=== PATIENT | female | born 1990 | race Caucasian/White ===

== ENCOUNTER 2017-02-04 12:28 | Emergency (ER) | payer SELFPAY ==
[2017-02-04 14:54] LABS: ALT (SGPT) 13 U/L (8-55); AST (SGOT) 14 U/L (5-34); Alkaline Phosphatase 89 U/L (40-150); Anion Gap 12 mmol/L (10-20); BUN (Urea Nitrogen) 11 mg/dL (7.0-18.7); Bilirubin, Total 0.2 mg/dL (0.2-1.2); Calc. Creatinine Clearance 0 mL/min (70-130); Calcium 9.3 mg/dL (7.8-10.44); Carbon Dioxide 25 mmol/L (22-29); Chloride 106 mmol/L (98-107); Estimated GFR-MDRD 83; Globulin 3.7 g/dL (2.4-3.5); Lipase 25 U/L (8-78); Protein, Total 7.6 g/dL (6.0-8.3)
[2017-02-04] MEDS ORDERED: Ondansetron ODT 4 MG TAB ONE (15:01)
== END 2017-02-04 16:14 | disposition home or self-care (01) ==
LOC: ERS 12:28
DX: R11.2 Nausea with vomiting, unspecified (principal); F17.210 Nicotine dependence, cigarettes, uncomplicated
CPT/HCPCS: 36415; 80053; 83690; 84702; 99284; Q0162

== ENCOUNTER 2017-04-25 09:32 | Emergency (ER) | payer MEDICAID, SELFPAY | END 2017-04-25 11:52 | disposition home or self-care (01) | LOC: ERS 09:32 | DX: J11.1 Influenza due to unidentified influenza virus with other respiratory manifestations (principal); F17.210 Nicotine dependence, cigarettes, uncomplicated | CPT/HCPCS: 99283 ==

== ENCOUNTER 2018-04-09 02:17 | Emergency (ER) | payer OTHER ==
[2018-04-09] MEDS ORDERED: Lidocaine 1% (PF) 30 ML VIAL ONE (03:59)
--- NOTE | 2018-04-09 08:23 | CT ---
PRELIMINARY REPORT/[facility]/EMERGENTY AFTER-HOURS PROCEDURE CT Head Without Intravenous Contrast EXAM DATE/TIME: 04/09/2018 4:24 AM CLINICAL HISTORY: 27 years old, female; Pain; Headache; Patient HX: 1.5 months [place], localized to church, no relief with advil, excedrin, recent dx strep. TECHNIQUE: Axial computed tomography images of the head/brain without intravenous contrast. COMPARISON: No relevant prior studies available. FINDINGS: Brain: No acute findings. No hemorrhage. No significant white matter disease. No edema. Small pineal cyst with rim calcifications. Ventricles: No acute findings. No ventriculomegaly. Bones/joints: No acute fracture. Sinuses: No acute findings. No significant air-fluid levels. Mastoid air cells: No acute findings. No mastoid effusion. Soft tissues: No acute findings. IMPRESSION: No acute findings. Thank you for allowing us to participate in the care of your patient. Dictated and Authenticated by: Salvador Littlejohn MD 04/09/2018 4:44 AM Central Time ([place] & [place]) FINAL REPORT BY DR. GUERRA EMERGENCY AFTER HOURS STUDY CT BRAIN NONCONTRAST: HISTORY: 27-year-old female with headache. FINDINGS: The ventricles are normal in size and configuration. There is no midline shift or any other mass eff ect. There is no evidence of acute intracranial hemorrhage, large cortical infarct, or extraaxial fl uid collection. The chandler matter /white matter differentiation is maintained. The calvarium is intac t. The tympanomastoid cavities, and the upper portions of the paranasal sinuses included in these im ages, are grossly clear. This report agrees with the preliminary report by Rad[facility]. IMPRESSION: Normal. jovi POS: [facility]
== END 2018-04-09 04:53 | disposition home or self-care (01) ==
LOC: ERS 02:17
DX: R51 Headache (principal); F17.210 Nicotine dependence, cigarettes, uncomplicated; Z71.6 Tobacco abuse counseling
CPT/HCPCS: 70460; 99406; J2001

== ENCOUNTER 2018-05-16 09:31 | Outpatient (CLI) | payer OTHER ==
--- NOTE | 2018-05-16 11:00 | RAD ---
FOUR VIEWS RIGHT KNEE: Comparison: None. History: Fall yesterday with right knee pain. FINDINGS: Four views of the right knee shows no evidence of acute fracture or dislocation. No degenerative alvarez ges are seen. No soft tissue swelling is present. IMPRESSION: No evidence of acute osseous abnormality. POS: [facility]
== END 2018-05-16 09:32 | disposition home or self-care (01) ==
LOC: SCSRAD 09:31
PROVIDERS: ATTEND Nurse Practitioner Family
DX: M25.561 Pain in right knee (principal)

== ENCOUNTER 2018-07-04 10:33 | Outpatient (CLI) | payer OTHER ==
[~2018-07-04 10:33] MED LIST: ISOVUE-370 76%-LOCM 1 ML ONE
--- NOTE | 2018-07-04 12:51 | CT ---
CT ABDOMEN AND PELVIS WITH IV CONTRAST: 07/04/2018 HISTORY: Nausea, vomiting, and lower abdominal pain for four months. History of prior hernia repair. COMPARISON: 12/23/2012 FINDINGS: The lung bases, liver, spleen, pancreas, bilateral adrenal glands, kidneys, abdominal aorta, decompre ssed urinary bladder, and uterus demonstrate a normal CT appearance. A 3.5 cm, hypodense, fluid attenuation, cystic lesion is seen in the left adnexal region, which may r epresent a left ovarian cyst. A cystic lesion was also seen in this region on a prior exam in 2012, although the cystic lesion on today's exam is larger in size. The opacified bowel has a normal CT appearance. The appendix is visualized and is normal in caliber. A tiny, fat-containing umbilical hernia is present. There is no free fluid, fluid collection, or lymphadenopathy seen in the abdomen or pelvis. Osseous structures have a normal appearance. IMPRESSION: 1. Left adnexal cyst, measuring 3.5 cm. Follow-up ultrasound is recommended in 6 to 8 weeks. 2. No acute findings are seen in the abdomen or pelvis. POS: [facility]
== END 2018-07-04 10:34 | disposition home or self-care (01) ==
LOC: BICCT 10:33
PROVIDERS: ATTEND Physician Assistant Medical
DX: A63.0 Anogenital (venereal) warts (principal); R10.9 Unspecified abdominal pain; R19.7 Diarrhea, unspecified; R11.0 Nausea; N83.8 Other noninflammatory disorders of ovary, fallopian tube and broad ligament
CPT/HCPCS: 74177; Q9966

== ENCOUNTER 2018-07-09 03:59 | Emergency (ER) | payer OTHER ==
[2018-07-09 04:50] LABS: Hemoglobin 14.3 g/dL (12.0-16.0); Mean Corpuscular HGB CONC 34.8 g/dL (32.0-36.0); Mean Corpuscular Hemoglobin 32.5 pg (27.0-31.0); Mean Corpuscular Volume 93.4 fL (78.0-98.0); Mean Platelet Volume 9.9 fL (7.4-10.4); Platelet Count 176 thou/uL (130-400); RBC Distribution Width 11.8 % (11.5-14.5); Red Blood Cell (RBC) Count 4.41 mill/uL (4.20-5.40); White Blood Cell (WBC) Count 9.1 thou/uL (4.8-10.8)
[2018-07-09 04:57] LABS: BHCG - Serum Negative (NEGATIVE); Pregs Control Background? CLEAR/WHITE (CLR/WHITE); Pregs Control Bar Appear? YES (CONTROL BAR)
[2018-07-09 05:06] LABS: Lymphocytes 26 % (21-51); MDiff Complete? YES; Monocytes 2 % (0-10); Neutrophil 62 % (42-75); Platelet Morphology Comment Appears Adequate; RBC Morphology Normal; Reactive Lymphocytes 10 % (0-10)
[2018-07-09 05:32] LABS: ALT (SGPT) 10 U/L (8-55); AST (SGOT) 12 U/L (5-34); Albumin 3.8 g/dL (3.5-5.0); Alkaline Phosphatase 72 U/L (40-150); Anion Gap 13 mmol/L (10-20); BUN (Urea Nitrogen) 9 mg/dL (7.0-18.7); Bilirubin, Total Less than 0.2 mg/dL (0.2-1.2); Calc. Creatinine Clearance 0 mL/min (70-130); Calcium 9.6 mg/dL (7.8-10.44); Carbon Dioxide 19 mmol/L (22-29); Chloride 114 mmol/L (98-107); Estimated GFR-MDRD 83; Globulin 3.1 g/dL (2.4-3.5); Glucose 124 mg/dL (70-105); Potassium 3.9 mmol/L (3.5-5.1); Protein, Total 6.9 g/dL (6.0-8.3); Sodium 142 mmol/L (136-145)
[2018-07-09] MEDS ORDERED: Ondansetron PF 4 MG/2 ML Vial ONE (07:02)
--- NOTE | 2018-07-09 08:07 | CT ---
CT ABDOMEN AND PELVIS WITH CONTRAST: CLINICAL HISTORY: Abdominal pain with nausea, vomiting, and history of herniorrhaphy. COMPARISON: 07/04/2018 FINDINGS: The visualized lung bases are clear. No acute abnormality visualized within the solid abdominal orga ns. The bowel is incompletely assessed without the presence of enteric contrast administration. No free air, ascites, or portal vein gas is seen. The abdominal aorta is normal in caliber. The imaged osseous structures are intact. The previously mentioned left adnexal cyst is grossly stable. IMPRESSION: 1. No acute intraabdominal pathology. 2. Persistence of a prominent-sized left adnexal cyst. Given absence of interval resolution, recomm end follow-up pelvic ultrasound in light of the patient's history of lower abdominal pain. CODE T POS: [facility]
--- NOTE | 2018-07-09 08:15 | RAD ---
SINGLE VIEW OF THE CHEST: COMPARISON: None. HISTORY: Polyp removal from colonoscopy on with increased pain and rectal bleeding. FINDINGS: Single view of the chest shows a normal sized cardiomediastinal silhouette. There is no evidence of c onsolidation, mass, or pleural effusion. The bones are unremarkable. IMPRESSION: No evidence of acute cardiopulmonary disease. POS: [facility]
[2018-07-09] MEDS ORDERED: ISOVUE-370 76%-LOCM 1 ML ONE (10:56)
== END 2018-07-09 07:48 | disposition home or self-care (01) ==
LOC: ERS 03:59
DX: K61.0 Anal abscess (principal); F17.210 Nicotine dependence, cigarettes, uncomplicated; Z71.6 Tobacco abuse counseling
CPT/HCPCS: 71045; 74177; 80053; 84703; 85025; 86900; 86901; 96374; 99406; J2405; Q9966

== ENCOUNTER 2018-07-14 04:54 | Emergency (ER) | payer OTHER ==
[2018-07-14] MEDS ORDERED: Lidocaine 4% Cream 5 GM TUBE w/ Tegaderm ONE (05:49)
[2018-07-14] MEDS ORDERED: Morphine 10 MG/ML VIAL ONE (05:49)
[2018-07-14] MEDS ORDERED: Fleet Enema 133 ML BOT PR SCH (06:45)
== END 2018-07-14 08:20 | disposition home or self-care (01) ==
LOC: ERS 04:54
DX: K59.00 Constipation, unspecified (principal); F17.210 Nicotine dependence, cigarettes, uncomplicated; Z79.899 Other long term (current) drug therapy
CPT/HCPCS: 96372; J2270

== ENCOUNTER 2019-01-04 12:05 | Emergency (ER) | payer OTHER ==
[2019-01-04 12:35] LABS: #Basophils 0.1 thou/uL (0.0-0.2); #Eosinphils 0.2 thou/uL (0.0-0.7); #Lymphocytes 2.7 thou/uL (1.20-3.40); #Monocytes 0.3 thou/uL (0.11-0.59); #Neutrophils 3.4 thou/uL (1.40-6.50); %Basophils 0.8 % (0.0-1.0); %Eosinophils 3.6 % (0.0-10.0); %Lymphocytes 39.5 % (21.0-51.0); %Monocytes 5.1 % (0.0-10.0); Hemoglobin 14.4 g/dL (12.0-16.0); Mean Corpuscular HGB CONC 34.1 g/dL (32.0-36.0); Mean Corpuscular Hemoglobin 31.7 pg (27.0-31.0); Mean Platelet Volume 10.2 fL (7.4-10.4); Platelet Count 174 thou/uL (130-400); RBC Distribution Width 11.3 % (11.5-14.5); Red Blood Cell (RBC) Count 4.53 mill/uL (4.20-5.40); White Blood Cell (WBC) Count 6.7 thou/uL (4.8-10.8)
[2019-01-04 12:57] LABS: ALT (SGPT) 9 U/L (8-55); AST (SGOT) 10 U/L (5-34); Albumin 4.2 g/dL (3.5-5.0); Alkaline Phosphatase 82 U/L (40-150); Anion Gap 11 mmol/L (10-20); BUN (Urea Nitrogen) 11 mg/dL (7.0-18.7); Bilirubin, Total 0.4 mg/dL (0.2-1.2); Calc. Creatinine Clearance 0 mL/min (70-130); Calcium 9.7 mg/dL (7.8-10.44); Carbon Dioxide 23 mmol/L (22-29); Chloride 107 mmol/L (98-107); Estimated GFR-MDRD 80; Globulin 2.8 g/dL (2.4-3.5); Glucose 83 mg/dL (70-105); Lipase 15 U/L (8-78); Sodium 137 mmol/L (136-145)
[2019-01-04 13:07] LABS: Pregnancy Test - Urine (BHCG) Negative (Negative); Pregu Control Background? CLEAR/WHITE (CLR/WHITE); Pregu Control Bar Appear? YES (CONTROL BAR); Specific Gravity 1.006 (1.002-1.036)
[2019-01-04 13:17] LABS: Bilirubin Negative (Negative); Blood, Urine Negative (Negative); Clarity Clear (Clear); Glucose, Urine (Dipstick) Normal (Negative); Leukocyte Negative Leu/uL (Negative); Nitrite Negative (Negative); Protein, Urine (Dipstick) Negative (Neg-Trace); Urobilinogen Normal mg/dL (Less than 2)
--- NOTE | 2019-01-04 14:07 | ULT ---
ULTRASOUND ABDOMEN LIMITED: (RIGHT UPPER QUADRANT) DATE: 01/04/2019 HISTORY: 28-year-old female with right upper quadrant abdominal pain FINDINGS: Gallbladder:No excessive distention. Normal mural thickness. No pericholecystic fluid. No evidence of gallstones or sludge. Common duct: 2 mm. Liver:Normal parenchymal echogenicity. Normal size. Questionable diffuse mild intrahepatic branch dil ation of biliary tree. Pancreas:No sonographic abnormality identified. Right kidney:No hydronephrosis. IMPRESSION: 1) no evidence of cholelithiasis or acute cholecystitis. 2) questionable diffuse mild dilation of intrahepatic bile ducts without dilation of common duct. Rec ommend correlation with serum bilirubin levels.
== END 2019-01-04 14:30 | disposition home or self-care (01) ==
LOC: ERS 12:05
DX: R10.11 Right upper quadrant pain (principal); F17.210 Nicotine dependence, cigarettes, uncomplicated
CPT/HCPCS: 36415; 76705; 80053; 81003; 81025; 83690; 85025

== ENCOUNTER 2019-01-11 15:31 | Emergency (ER) | payer OTHER ==
[2019-01-11 15:54] LABS: #Basophils 0.1 thou/uL (0.0-0.2); #Eosinphils 0.1 thou/uL (0.0-0.7); #Monocytes 0.4 thou/uL (0.11-0.59); #Neutrophils 4.4 thou/uL (1.40-6.50); %Basophils 0.9 % (0.0-1.0); %Eosinophils 1.6 % (0.0-10.0); %Monocytes 5.4 % (0.0-10.0); %Neutrophils 55.1 % (42.0-75.0); Hemoglobin 13.9 g/dL (12.0-16.0); Mean Corpuscular HGB CONC 35.3 g/dL (32.0-36.0); Mean Corpuscular Volume 93.4 fL (78.0-98.0); Mean Platelet Volume 9.6 fL (7.4-10.4); Platelet Count 179 thou/uL (130-400); RBC Distribution Width 11.2 % (11.5-14.5); Red Blood Cell (RBC) Count 4.22 mill/uL (4.20-5.40)
[2019-01-11 16:15] LABS: ALT (SGPT) 11 U/L (8-55); AST (SGOT) 11 U/L (5-34); Albumin 4.3 g/dL (3.5-5.0); Alkaline Phosphatase 79 U/L (40-150); Anion Gap 12 mmol/L (10-20); BUN (Urea Nitrogen) 13 mg/dL (7.0-18.7); Bilirubin, Total 0.5 mg/dL (0.2-1.2); Calc. Creatinine Clearance 0 mL/min (70-130); Calcium 9.8 mg/dL (7.8-10.44); Carbon Dioxide 22 mmol/L (22-29); Chloride 108 mmol/L (98-107); Estimated GFR-MDRD 80; Globulin 2.9 g/dL (2.4-3.5); Glucose 77 mg/dL (70-105); Lipase 14 U/L (8-78); Potassium 3.7 mmol/L (3.5-5.1); Protein, Total 7.2 g/dL (6.0-8.3); Sodium 138 mmol/L (136-145)
--- NOTE | 2019-01-11 18:36 | ULT ---
US Gallbladder RUQ: 01/11/2019 5:37 PM CLINICAL HISTORY: Right upper quadrant abdominal pain. STUDY: Limited right upper quadrant ultrasound of abdomen. COMPARISON: 01/04/2019 FINDINGS: Liver: Size: Normal. Echogenicity: Normal. Contour: Smooth. Mass: None. Bile ducts: No intrahepatic or extrahepatic biliary dilatation. Common bile duct measures 3 mm. Gallbladder: Normal. Pancreas: Head, body, and tail appear normal. Right kidney: No pelvicalyceal dilatation. Right kidney measuring 10.3 cm in length. IMPRESSION: Unremarkable exam.
[2019-01-11 18:43] LABS: Bilirubin Negative (Negative); Blood, Urine Negative (Negative); Clarity Turbid (Clear); Glucose, Urine (Dipstick) Normal (Negative); Leukocyte Negative Leu/uL (Negative); Nitrite Negative (Negative); Protein, Urine (Dipstick) Negative (Neg-Trace); Urobilinogen 3 mg/dL (Less than 2)
[2019-01-11 18:44] LABS: Pregnancy Test - Urine (BHCG) Negative (Negative); Pregu Control Background? CLEAR/WHITE (CLR/WHITE); Pregu Control Bar Appear? YES (CONTROL BAR); Specific Gravity 1.025 (1.002-1.036)
== END 2019-01-11 19:20 | disposition home or self-care (01) ==
LOC: ERS 15:31
DX: K58.0 Irritable bowel syndrome with diarrhea (principal); F41.9 Anxiety disorder, unspecified; F17.210 Nicotine dependence, cigarettes, uncomplicated
CPT/HCPCS: 36415; 76705; 80053; 81003; 81025; 83690; 85025

== ENCOUNTER 2019-01-17 12:52 | Outpatient (CLI) | payer OTHER ==
--- NOTE | 2019-01-17 16:31 | NM ---
EXAM: NM Hida Scan W Drug PROVIDED CLINICAL HISTORY: Right upper quadrant abdominal pain. No gallbladder calculi seen on recent right upper quadrant ultra sound on 01/11/2019. COMPARISON: None FINDINGS: There is prompt uptake and excretion of radiotracer by the liver. Bowel activity is visualized by 60 minutes; although, there is suggestion of faint visualization of bowel prior to this time. There is mild gallbladder uptake visualized at 48 minutes with increasing activity in the gallbladder. After 6 0 minutes of imaging, 8 ounces of Ensure was administered by mouth. A gallbladder ejection fraction of 40% was obtained. A normal gallbladder ejection fraction is greater than 33%. IMPRESSION: 1. No evidence of a cystic or common duct obstruction. 2. Normal gallbladder ejection fraction.
== END 2019-01-17 12:53 | disposition home or self-care (01) ==
LOC: NM 12:52
PROVIDERS: ATTEND Specialist
DX: R10.11 Right upper quadrant pain (principal)
CPT/HCPCS: 78227; A9537

== ENCOUNTER 2019-02-07 14:05 | Emergency (ER) | payer OTHER ==
[2019-02-07] MEDS ORDERED: Ibuprofen 800 MG TAB ONE (17:02)
== END 2019-02-07 17:10 | disposition home or self-care (01) ==
LOC: ERS 14:05
DX: J20.9 Acute bronchitis, unspecified (principal); F41.9 Anxiety disorder, unspecified; F17.210 Nicotine dependence, cigarettes, uncomplicated; Z85.89 Personal history of malignant neoplasm of other organs and systems
CPT/HCPCS: 87081; 87430; 87804; 99283

== ENCOUNTER 2019-05-10 05:30 | Emergency (ER) | payer OTHER, SELFPAY ==
[2019-05-10] MEDS ORDERED: Acetaminophen 500 MG TAB ONE (05:48)
[2019-05-10] MEDS ORDERED: Ondansetron ODT 4 MG TAB ONE (06:16)
[2019-05-10 07:06] LABS: #Lymphocytes 0.6 thou/uL (1.20-3.40); #Monocytes 0.5 thou/uL (0.11-0.59); #Neutrophils 3.4 thou/uL (1.40-6.50); %Basophils 0.2 % (0.0-1.0); %Eosinophils 0.9 % (0.0-10.0); %Lymphocytes 13.3 % (21.0-51.0); %Monocytes 11.5 % (0.0-10.0); %Neutrophils 74.1 % (42.0-75.0); Hemoglobin 14.3 g/dL (12.0-16.0); Mean Corpuscular HGB CONC 34.5 g/dL (32.0-36.0); Mean Corpuscular Hemoglobin 31.3 pg (27.0-31.0); Mean Corpuscular Volume 90.6 fL (78.0-98.0); Mean Platelet Volume 10.1 fL (7.4-10.4); Platelet Count 129 thou/uL (130-400); RBC Distribution Width 11.5 % (11.5-14.5); Red Blood Cell (RBC) Count 4.57 mill/uL (4.20-5.40); White Blood Cell (WBC) Count 4.6 thou/uL (4.8-10.8)
[2019-05-10 07:29] LABS: ALT (SGPT) 10 U/L (8-55); AST (SGOT) 12 U/L (5-34); Albumin 3.9 g/dL (3.5-5.0); Alkaline Phosphatase 73 U/L (40-110); Anion Gap 14 mmol/L (10-20); BUN (Urea Nitrogen) 8 mg/dL (7.0-18.7); Bilirubin, Total 0.2 mg/dL (0.2-1.2); Calc. Creatinine Clearance 0 mL/min (70-130); Calcium 9.2 mg/dL (7.8-10.44); Carbon Dioxide 18 mmol/L (22-29); Chloride 108 mmol/L (98-107); Estimated GFR-MDRD 82; Globulin 3.2 g/dL (2.4-3.5); Glucose 91 mg/dL (70-105); Potassium 3.6 mmol/L (3.5-5.1); Protein, Total 7.1 g/dL (6.0-8.3); Sodium 136 mmol/L (136-145)
--- NOTE | 2019-05-10 08:49 | RAD ---
CHEST ONE VIEW: INDICATIONS: Cough. Congestion. Headache. COMPARISON: 07/09/2018 FINDINGS: No definite consolidation, pleural effusion or pneumothorax is evident. Heart size is normal. No acut e osseous abnormality is evident. IMPRESSION: No definite acute cardiopulmonary abnormality. POS: [facility]
== END 2019-05-10 07:17 | disposition home or self-care (01) ==
LOC: ERS 05:30
DX: J11.1 Influenza due to unidentified influenza virus with other respiratory manifestations (principal); F32.9 Major depressive disorder, single episode, unspecified; F41.9 Anxiety disorder, unspecified; F17.210 Nicotine dependence, cigarettes, uncomplicated
CPT/HCPCS: 36415; 71045; 80053; 83605; 85025; 87040; 87804; Q0162

== ENCOUNTER 2019-06-10 23:09 | Emergency (ER) | payer SELFPAY | END 2019-06-11 01:02 | disposition home or self-care (01) | LOC: ERS 23:09 | DX: J06.9 Acute upper respiratory infection, unspecified (principal); F32.9 Major depressive disorder, single episode, unspecified; F41.9 Anxiety disorder, unspecified; F17.210 Nicotine dependence, cigarettes, uncomplicated | CPT/HCPCS: 93005 ==

== ENCOUNTER 2019-07-25 10:37 | Emergency (ER) | payer SELFPAY ==
--- NOTE | 2019-07-25 11:37 | RAD ---
EXAM: Chest one view: HISTORY: Cough COMPARISON: 05/10/2019 FINDINGS: Heart size: Within normal limits. Lungs: Clear of acute process. No evidence for confluent pneumonia, pleural effusion, acute edema, or pneumothorax, or other signifi cant acute process. IMPRESSION: No significant acute intrathoracic disease.
== END 2019-07-25 12:15 | disposition home or self-care (01) ==
LOC: ERS 10:37
DX: J06.9 Acute upper respiratory infection, unspecified (principal); F32.9 Major depressive disorder, single episode, unspecified; F41.9 Anxiety disorder, unspecified; F17.210 Nicotine dependence, cigarettes, uncomplicated
CPT/HCPCS: 71045